=== PATIENT | male | born 1960 | race Caucasian/White ===

== ENCOUNTER 2017-02-19 11:44 | Observation (INO) | payer OTHER ==
[2017-02-19 11:45] VITALS: BMI 25.4
[2017-02-19] MEDS ORDERED: Sodium Chloride 0.9% 1,000 ML IV ONE (12:35)
[2017-02-19] MEDS ORDERED: Pantoprazole 80 MG in Sodium Chloride 0.9% 100 ML IVP SCH (12:45)
[2017-02-19 13:19] LABS: BASO # 0.1 K/uL (0.0-0.2); BASO % 1.1 % (0.0-2.0); EOS # 0.2 K/uL (0.0-0.7); EOS % 2.4 % (0.0-4.0); HEMOGLOBIN 11.6 g/dL (12.0-18.0); LYMPH # 1.9 K/uL (1.0-4.3); LYMPH % 23.9 % (20.0-40.0); MEAN CELL VOLUME 92.8 fL (80.0-94.0); MEAN CORPUSCULAR HEMOGLOBIN 29.7 pg (27.0-31.0); MEAN PLATELET VOLUME 7.7 fL (7.2-11.7); MONO # 0.7 K/uL (0.0-0.8); MONO % 8.3 % (0.0-10.0); NEUT # 5.1 K/uL (1.8-7.0); NEUT % 64.3 % (50.0-75.0); RBC 3.9 Mil/uL (4.40-5.90); RED CELL DISTRIBUTION WIDTH 13.8 % (11.5-14.5)
--- NOTE | 2017-02-19 13:19 | CP.PCM.CON ---
History of Present Illness - History of Present Illness History of Present Illness: Asked to see pt for black stool. H/O COPD, CAD, 2 yrs ago SOB- car[place] pulm embolism and AAA Now reports on friday- black diarrhea. Feels weak. CAme to ER Today. Had small amount of dark solid stool yesterday. is present. SH: Smoking., social etoh. Drank beer with friends on friday. On plavix, Denies NSAID, Denies PUD. Review of Systems - Constitutional Constitutional: Fatigue, Weakness. absent: Headache, Weight Gain, Weight Loss - EENT Eyes: absent: Photophobia Nose/Mouth/Throat: absent: Dental Pain - Cardiovascular Cardiovascular: Lightheadedness. absent: Chest Pain, Dyspnea - Respiratory Respiratory: absent: Cough, Hemoptysis, Wheezing - Gastrointestinal Gastrointestinal: Abdominal Pain, Melena. absent: Coffee Ground Emesis, Constipation, Cramping, Hematemesis, Hematochezia, Vomiting - Genitourinary Genitourinary: absent: Hematuria, Urinary Frequency - Musculoskeletal Musculoskeletal: absent: Joint Swelling - Integumentary Integumentary: absent: Jaundice - Neurological Neurological: Weakness Past Patient History - Infectious Disease Hx of Infectious Diseases: None - Past Medical History & Family History Past Medical History?: Yes - Past Social History Smoking Status: Light Smoker < 10 Cigarettes Daily - CARDIAC Hx Cardiac Disorders: Yes Hx Congestive Heart Failure: Yes Hx Heart Attack: Yes Hx Hypertension: Yes Other/Comment: possible new anuerism aortic - PULMONARY Hx Respiratory Disorders: No - NEUROLOGICAL Hx Neurological Disorder: No - HEENT Hx HEENT Problems: No - RENAL Hx Chronic Kidney Disease: No Hx Dialysis: No - ENDOCRINE/METABOLIC Hx Endocrine Disorders: No - MUSCULOSKELETAL/RHEUMATOLOGICAL Hx Musculoskeletal Disorders: No Hx Falls: No - GASTROINTESTINAL Hx Gastrointestinal Disorders: No Hx Gastroesophageal Reflux: No Other/Comment: loss of appetite and weight loss - GENITOURINARY/GYNECOLOGICAL Hx Genitourinary Disorders: Yes - PSYCHIATRIC Hx Psychophysiologic Disorder: No Hx Substance Use: No - SURGICAL HISTORY Hx Coronary Stent: Yes - ANESTHESIA Hx Anesthesia: Yes Hx Anesthesia Reactions: No Meds Allergies/Adverse Reactions: Allergies Allergy/AdvReac Type Severity Reaction Status Date / Time No Known Allergies Allergy Verified 02/19/17 11:53 - Medications Medications: Current Medications Sodium Chloride (Sodium Chloride 0.9%) 1,000 mls @ 1,000 mls/hr IV .Q1H ONE Stop: 02/19/17 13:34 Pantoprazole Sodium 80 mg/ (Sodium Chloride) 100 mls @ 10 mls/hr IV .Q10H [facility] PRN Reason: 8 MG/HR Physical Exam - Constitutional Appears: Non-toxic Additional comments: Weak. - Respiratory Exam Respiratory Exam: Clear to Auscultation Bilateral - Cardiovascular Exam Cardiovascular Exam: RRR - GI/Abdominal Exam GI & Abdominal Exam: Normal Bowel Sounds, Soft. absent: Mass - Extremities Exam Extremities exam: Negative for: calf tenderness - Neurological Exam Neurological exam: Alert, Oriented x3 Results - Vital Signs Recent Vital Signs: Last Vital Signs Temp 98.9 F 02/19/17 11:48 Pulse 75 02/19/17 11:48 Resp 16 02/19/17 11:48 BP 114/66 02/19/17 11:48 Pulse Ox 98 02/19/17 11:48 Assessment & Plan (1) COPD (chronic obstructive pulmonary disease) Status: Acute (2) Epigastric pain Assessment and Plan: COnsider gastritis, PUD. Status: Acute (3) Melena Assessment and Plan: Likely ulcer. Ulcer promoted by alcohol and smoking. Bleeding promoted by plavix. P- PPI drip, check Hb's. NPO, hold plavix endoscopy- when stable. Status: Acute (4) Weakness Status: Acute (5) Aortic aneurysm Status: Acute (6) Coronary atherosclerosis of [place] coronary artery Status: Acute (7) Essential hypertension Status: Acute
[2017-02-19 13:21] LABS: SQUAMOUS EPITHIAL 1 /hpf (0-5); URINE BACTERIA RARE (<OCC); URINE BILIRUBIN NEGATIVE (NEGATIVE); URINE BLOOD 1+ (NEGATIVE); URINE CLARITY Clear (Clear); URINE COLOR Yellow (YELLOW); URINE GLUCOSE (UA) NORMAL (Normal); URINE LEUKOCYTE ESTERASE TRACE Leu/uL (Negative); URINE NITRATE NEGATIVE (NEGATIVE); URINE PROTEIN NEGATIVE (NEGATIVE); URINE UROBILINOGEN NORMAL mg/dL (0.2-1.0)
[2017-02-19 13:24] LABS: INR 1.1; PROTHROMBIN TIME 12.2 SECONDS (9.7-12.2)
[2017-02-19 13:28] LABS: ALBUMIN 3.7 g/dL (3.5-5.0)
[2017-02-19 13:31] LABS: ALB/GLOB RATIO 1.3 (1.0-2.1); ALT/SGPT 16 U/L (21-72); AST/SGOT 19 U/L (17-59); BLOOD UREA NITROGEN 41 mg/dL (9-20); GFR AFRICAN-AMERICAN > 60; GFR NON-AFRICAN AMERICAN > 60
[2017-02-19 13:32] LABS: CALCIUM 8.4 mg/dl (8.6-10.4)
--- NOTE | 2017-02-19 13:41 | C.PDOC ---
History Of Present Illness Patient is a 56 y/o male, with past medical history of aortic aneurysm, is sent to the emergency department by PMD, Dr. Morfin, for admission for observation. Patient complains of black stools for the last 3 days. Otherwise, denies any fever, abdominal pain, nausea, vomiting, or any other associated symptoms at this time. Time Seen by Provider: 02/19/17 12:19 Chief Complaint (Nursing): Medical Clearance History Per: Patient History/Exam Limitations: no limitations Onset/Duration Of Symptoms: Days (3) Current Symptoms Are (Timing): Still Present Severity: None Pain Scale Rating Of: 0 Associated Symptoms: Other (black stool). denies: Nausea, Vomiting, Hematemesis Modifying Factors: None Recent travel outside of the [place]: No Additional History Per: Patient Past Medical History Reviewed: Historical Data, Nursing Documentation, Vital Signs Vital Signs: Last Vital Signs Temp 98.3 F 02/19/17 15:41 Pulse 65 02/19/17 15:41 Resp 20 02/19/17 15:41 BP 101/54 L 02/19/17 15:41 Pulse Ox 100 02/19/17 18:42 - Medical History PMH: CHF, HTN Denies: Chronic Kidney Disease Surgical History: Coronary Stent Family History: States: Unknown Family Hx - Social History Hx Alcohol Use: Yes Hx Substance Use: No - Immunization History Hx Tetanus Toxoid Vaccination: No Hx Influenza Vaccination: Yes Hx Pneumococcal Vaccination: No Review Of Systems Except As Marked, All Systems Reviewed And Found Negative. Constitutional: Negative for: Fever, Chills Gastrointestinal: Positive for: Other (black stool). Negative for: Nausea, Vomiting, Abdominal Pain, Hematemesis, Rectal Pain Genitourinary: Negative for: Dysuria, Frequency, Hematuria Musculoskeletal: Negative for: Back Pain Physical Exam - Physical Exam Appears: Non-toxic, No Acute Distress Skin: Normal Color, Warm, Dry Head: Atraumatic, Normacephalic Eye(s): bilateral: Normal Inspection Neck: Normal ROM, Supple Chest: Symmetrical Cardiovascular: Rhythm Regular, No Murmur Respiratory: Normal Breath Sounds, No Rales, No Rhonchi, No Wheezing Gastrointestinal/Abdominal: Soft, No Tenderness Rectal: Other (black stool in vault) Extremity: Bilateral: Atraumatic Neurological/Psych: Oriented x3, Normal Speech, Normal Cognition ED Course And Treatment - Laboratory Results Result Diagrams: 02/19/17 13:12 02/19/17 13:12 Lab Interpretation: No Acute Changes O2 Sat by Pulse Oximetry: 100 Pulse Ox Interpretation: Normal Progress Note: Urinalysis, blood work, CXR, EKG ordered and reviewed. Patient was given IV fluids, and Pantoprazole. Reassessment Condition: Improved - Physician Consult Information Physician Contacted: Natalie Morfin Outcome Of Conversation: admit Disposition Discussed With : Natalie Morfin Doctor Will See Patient In The: Hospital - Disposition Disposition: HOSPITALIZED Disposition Time: 17:00 Condition: STABLE - POA Present On Arrival: None - Clinical Impression Clinical Impression: GI bleeding - PA / PATHOLOGY LABORATORY DIRECTOR / Resident Statement MD/DO has reviewed & agrees with the documentation as recorded. - Scribe Statement The provider has reviewed the documentation as recorded by the Scribe Pavan Blank All medical record entries made by the Scribe were at my direction and personally dictated by me. I have reviewed the chart and agree that the record accurately reflects my personal performance of the history, physical exam, medical decision making, and the department course for this patient. I have also personally directed, reviewed, and agree with the discharge instructions and disposition.
--- NOTE | 2017-02-19 13:50 | RAD ---
HISTORY: COMPARISON: CT chest from 04/27/2015. TECHNIQUE: Chest PA and lateral FINDINGS: LINES AND TUBES: None. LUNG AND PLEURA: Lungs are clear. There are no pleural effusions or pneumothorax. HEART AND MEDIASTINUM: The heart is not enlarged. There is stable prominence of the aortic arch. The hilar and mediastinal contours are within normal limits. SKELETAL STRUCTURES: The bony structures are within normal limits for the patient's age. VISUALIZED UPPER ABDOMEN: Normal. OTHER FINDINGS: None. IMPRESSION: No acute pulmonary findings.
[2017-02-19] MEDS: Pantoprazole 80 MG in Sodium Chloride 0.9% 100 ML IV SCH ×2 (14:45→23:04)
[2017-02-20 06:37] LABS: HEMOGLOBIN 11.3 g/dL (12.0-18.0); MEAN CELL VOLUME 92.7 fL (80.0-94.0); MEAN CORPUSCULAR HEMOGLOBIN 30.5 pg (27.0-31.0); MEAN CORPUSCULAR HGB CONC 32.9 g/dL (33.0-37.0); MEAN PLATELET VOLUME 7.6 fL (7.2-11.7); RBC 3.71 Mil/uL (4.40-5.90)
--- NOTE | 2017-02-20 07:10 | CP.PCM.HP ---
History of Present Illness - History of Present Illness History of Present Illness: Chief complaint: Black stools History present illness: 56-year-old male with history of smoking, CAD, status post a stent 2, COPD, thoracic aortic aneurysm which is being monitored closely and also history of pulmonary embolism was on anticoagulation came to the emergency room with the blocked tarry stools. Patient started having the black stools for 3-4 days now, mostly painless, no epigastric pain. Initially significant amount of black stools noted, currently there is some clearing noted. Last night he had another episode of black stools. He denies any chest pain at this time, no nausea vomiting noted. In the past the patient did not have any episodes like this. Patient used to take a anticoagulation Lovenox injection for pulmonary embolism , currently not on any anticoagulation. In May 2016 patient was evaluated by cardiothoracic surgery, for ongoing descending thoracic aortic aneurysm which is a 5.1 cm in size now and being watched, and he will need another CTA in few months. Past medical history: CAD, hypertension, smoking, COPD, thoracic aortic aneurysm, status post a stent Allergy: No known drug allergy Personal history: Still actively smoking. Occasional alcohol use. Review of system noted from the chart Vital signs reviewed No neck vein distention noted Chest good air entry bilaterally, no wheezing or rales noted CVS regular heart sound, no murmur noted Abdomen soft, nontender. 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 Currently on Protonix. We'll continue to monitor the GA status, and the bleeding status. Monitor the hemoglobin. Endoscopy possibly. If he is stable clinically, will discuss with the cardiology possibly and GA about discharge plan after the endoscopy. Present on Admission - Present on Admission Any Indicators Present on Admission: No History of DVT/PE: No History of Uncontrolled Diabetes: No Urinary Catheter: No Decubitus Ulcer Present: No Past Patient History - Infectious Disease Hx of Infectious Diseases: None - Past Medical History & Family History Past Medical History?: Yes - Past Social History Smoking Status: Light Smoker < 10 Cigarettes Daily - CARDIAC Hx Congestive Heart Failure: Yes Hx Hypertension: Yes - PULMONARY Hx Respiratory Disorders: No - NEUROLOGICAL Hx Neurological Disorder: No - HEENT Hx HEENT Problems: No - RENAL Hx Chronic Kidney Disease: No - ENDOCRINE/METABOLIC Hx Endocrine Disorders: No - MUSCULOSKELETAL/RHEUMATOLOGICAL Hx Musculoskeletal Disorders: No Hx Falls: No - GASTROINTESTINAL Hx Gastrointestinal Disorders: No Hx Gastroesophageal Reflux: No Hx Vomiting: Yes - GENITOURINARY/GYNECOLOGICAL Hx Genitourinary Disorders: Yes - PSYCHIATRIC Hx Substance Use: No - SURGICAL HISTORY Hx Coronary Stent: Yes - ANESTHESIA Hx Anesthesia: Yes Hx Anesthesia Reactions: No Meds Allergies/Adverse Reactions: Allergies Allergy/AdvReac Type Severity Reaction Status Date / Time No Known Allergies Allergy Verified 02/19/17 11:53 Results - Vital Signs Recent Vital Signs: Last Vital Signs Temp 98.5 F 02/20/17 00:19 Pulse 73 02/20/17 00:19 Resp 20 02/20/17 00:19 BP 112/65 02/20/17 00:19 Pulse Ox 96 02/20/17 00:19 - Labs Result Diagrams: 02/20/17 06:26 02/19/17 13:12 Labs: Laboratory Results - last 24 hr 02/19/17 02/19/17 02/19/17 13:00 13:12 13:12 WBC 8.0 RBC 3.90 L Hgb 11.6 L D Hct 36.2 MCV 92.8 D MCH 29.7 MCHC 32.0 L RDW 13.8 Plt Count 214 MPV 7.7 Neut % (Auto) 64.3 Lymph % (Auto) 23.9 [place] % (Auto) 8.3 Eos % (Auto) 2.4 Baso % (Auto) 1.1 Neut # 5.1 Lymph # 1.9 [place] # 0.7 Eos # 0.2 Baso # 0.1 PT INR Sodium 138 Potassium 3.9 Chloride 102 Carbon Dioxide 23 Anion Gap 17 BUN 41 H Creatinine 1.2 Est GFR ( Amer) > 60 Est GFR (Non-Af Amer) > 60 Random Glucose 118 H Calcium 8.4 L Total Bilirubin 0.9 AST 19 ALT 16 L D Alkaline Phosphatase 37 L D Total Protein 6.5 Albumin 3.7 Globulin 2.8 Albumin/Globulin Ratio 1.3 Urine Color Yellow Urine Clarity Clear Urine pH 5.0 Ur Specific [place] 1.020 Urine Protein Negative Urine Glucose (UA) Normal Urine Ketones Negative Urine Blood 1+ H Urine Nitrate Negative Urine Bilirubin Negative Urine Urobilinogen Normal Ur Leukocyte Esterase Trace Urine WBC (Auto) 4 Urine RBC (Auto) 10 H Ur Squamous Epith Cells 1 Urine Bacteria Rare Blood Type Antibody Screen 02/19/17 02/19/17 02/19/17 13:12 13:12 20:01 WBC RBC Hgb 10.8 L Hct MCV MCH MCHC RDW Plt Count MPV Neut % (Auto) Lymph % (Auto) [place] % (Auto) Eos % (Auto) Baso % (Auto) Neut # Lymph # [place] # Eos # Baso # PT 12.2 INR 1.1 Sodium Potassium Chloride Carbon Dioxide Anion Gap BUN Creatinine Est GFR ( Amer) Est GFR (Non-Af Amer) Random Glucose Calcium Total Bilirubin AST ALT Alkaline Phosphatase Total Protein Albumin Globulin Albumin/Globulin Ratio Urine Color Urine Clarity Urine pH Ur Specific [place] Urine Protein Urine Glucose (UA) Urine Ketones Urine Blood Urine Nitrate Urine Bilirubin Urine Urobilinogen Ur Leukocyte Esterase Urine WBC (Auto) Urine RBC (Auto) Ur Squamous Epith Cells Urine Bacteria Blood Type A POSITIVE Antibody Screen Negative 02/20/17 06:26 WBC 7.0 RBC 3.71 L Hgb 11.3 L Hct 34.4 L MCV 92.7 MCH 30.5 MCHC 32.9 L RDW 14.0 Plt Count 209 MPV 7.6 Neut % (Auto) Lymph % (Auto) [place] % (Auto) Eos % (Auto) Baso % (Auto) Neut # Lymph # [place] # Eos # Baso # PT INR Sodium Potassium Chloride Carbon Dioxide Anion Gap BUN Creatinine Est GFR ( Amer) Est GFR (Non-Af Amer) Random Glucose Calcium Total Bilirubin AST ALT Alkaline Phosphatase Total Protein Albumin Globulin Albumin/Globulin Ratio Urine Color Urine Clarity Urine pH Ur Specific [place] Urine Protein Urine Glucose (UA) Urine Ketones Urine Blood Urine Nitrate Urine Bilirubin Urine Urobilinogen Ur Leukocyte Esterase Urine WBC (Auto) Urine RBC (Auto) Ur Squamous Epith Cells Urine Bacteria Blood Type Antibody Screen
[2017-02-20 07:35] LABS: BLOOD UREA NITROGEN 25 mg/dL (9-20); GFR AFRICAN-AMERICAN > 60; GFR NON-AFRICAN AMERICAN > 60
[2017-02-20 07:36] LABS: CALCIUM 8.2 mg/dl (8.6-10.4)
[2017-02-20] MEDS: Pantoprazole 80 MG in Sodium Chloride 0.9% 100 ML IV SCH ×2 (09:32→19:40)
[2017-02-20] MEDS ORDERED: Etomidate 20 mg/10ml Inj IV ONE (10:31)
[2017-02-20] MEDS: Sucralfate 1 gm/10 ml Oral Susp UD PO SCH ×2 (14:04→17:23)
[2017-02-20 15:48] VITALS: RESP 20
[2017-02-21] MEDS: Pantoprazole 80 MG in Sodium Chloride 0.9% 100 ML IV SCH (06:45)
[2017-02-21 07:49] VITALS: BP 130/77; PULSE 70; TEMP 98.4; O2SAT 98
[2017-02-21 08:38] LABS: HEMOGLOBIN 11.4 g/dL (12.0-18.0); MEAN CELL VOLUME 93.2 fL (80.0-94.0); MEAN CORPUSCULAR HEMOGLOBIN 30.2 pg (27.0-31.0); MEAN CORPUSCULAR HGB CONC 32.4 g/dL (33.0-37.0); MEAN PLATELET VOLUME 8.1 fL (7.2-11.7); RBC 3.78 Mil/uL (4.40-5.90); RED CELL DISTRIBUTION WIDTH 13.8 % (11.5-14.5); WHITE BLOOD COUNT 6.9 K/uL (4.8-10.8)
[2017-02-21] MEDS: Sucralfate 1 gm/10 ml Oral Susp UD PO SCH ×2 (09:41→13:03)
--- NOTE | 2017-02-21 13:05 | CP.PCM.PN ---
Subjective - Date & Time of Evaluation Date of Evaluation: 02/21/17 Time of Evaluation: 13:05 Objective - Vital Signs/Intake and Output Vital Signs (last 24 hours): Temp Pulse Resp BP Pulse Ox 98.4 F 70 20 130/77 98 02/21/17 07:47 02/21/17 07:47 02/21/17 07:47 02/21/17 07:47 02/21/17 07:47 Intake and Output: 02/21/17 02/21/17 06:59 18:59 Intake Total 760 Balance 760 - Medications Medications: Current Medications Pantoprazole Sodium 80 mg/ (Sodium Chloride) 100 mls @ 10 mls/hr IV .Q10H [facility] PRN Reason: 8 MG/HR Last Admin: 02/21/17 06:45 Dose: 10 mls/hr Pneumococcal Polyvalent Vaccine (Pneumovax 23 Vaccine) 0.5 ml IM .ONCE ONE Stop: 02/22/17 10:01 Sucralfate (Carafate Oral Susp) 1 gm PO TID [facility] Last Admin: 02/21/17 13:03 Dose: 1 gm - Labs Labs: 02/21/17 08:26 02/20/17 06:26 PT 12.2 SECONDS (9.7-12.2) 02/19/17 13:12 INR 1.1 02/19/17 13:12
--- NOTE | 2017-02-21 13:14 | CP.PCM.PN ---
Subjective - Date & Time of Evaluation Date of Evaluation: 02/21/17 Time of Evaluation: 13:11 - Subjective Subjective: F/U GI bleed. Pt seen with RN Pt reports feeling much better. Had 1 black BM today. Denies abdom pain, RB, fever, chills, Cp, SOB., FU, cough Objective - Vital Signs/Intake and Output Vital Signs (last 24 hours): Temp Pulse Resp BP Pulse Ox 98.4 F 70 20 130/77 98 02/21/17 07:47 02/21/17 07:47 02/21/17 07:47 02/21/17 07:47 02/21/17 07:47 Intake and Output: 02/21/17 02/21/17 06:59 18:59 Intake Total 760 Balance 760 - Medications Medications: Current Medications Pantoprazole Sodium 80 mg/ (Sodium Chloride) 100 mls @ 10 mls/hr IV .Q10H [facility] PRN Reason: 8 MG/HR Last Admin: 02/21/17 06:45 Dose: 10 mls/hr Pneumococcal Polyvalent Vaccine (Pneumovax 23 Vaccine) 0.5 ml IM .ONCE ONE Stop: 02/22/17 10:01 Sucralfate (Carafate Oral Susp) 1 gm PO TID [facility] Last Admin: 02/21/17 13:03 Dose: 1 gm - Labs Labs: 02/21/17 08:26 02/20/17 06:26 PT 12.2 SECONDS (9.7-12.2) 02/19/17 13:12 INR 1.1 02/19/17 13:12 - Constitutional Appears: Well - Neck Exam Neck Exam: absent: Tenderness - Respiratory Exam Respiratory Exam: Clear to Ausculation Bilateral - Cardiovascular Exam Cardiovascular Exam: RRR - GI/Abdominal Exam GI & Abdominal Exam: Soft, Normal Bowel Sounds. absent: Guarding, Tenderness, Mass - Extremities Exam Extremities Exam: absent: Calf Tenderness - Neurological Exam Neurological Exam: Alert, Oriented x3 Assessment and Plan (1) COPD (chronic obstructive pulmonary disease) Status: Acute (2) Epigastric pain Assessment & Plan: gastric ulcers Status: Acute (3) Melena Assessment & Plan: Gastric ulcers. had 1 black BM today- solid- likely is OLD blood. I Doubt active bleeding. REC_ PPI BID, check Hb. CHeck gastric biopsy. Repeat EGD 1-2 months. Discussd with patient. Hold aspirin and plavix 1 week Status: Acute (4) Weakness Status: Acute (5) Aortic aneurysm Status: Acute (6) Coronary atherosclerosis of [place] coronary artery Status: Acute (7) Essential hypertension Status: Acute
[2017-02-21] MEDS ORDERED: Pneumococcal 23-Valent Vaccine IM ONE (13:45)
== END 2017-02-21 14:52 | disposition home or self-care (01) ==
LOC: C.ER 11:44 → C.9E 12:41 → C.3T 13:10
PROVIDERS: ADMIT Internal Medicine; ATTEND Internal Medicine
DX: K29.70 Gastritis, unspecified, without bleeding (principal); K20.9 Esophagitis, unspecified; B96.81 Helicobacter pylori [H. pylori] as the cause of diseases classified elsewhere; I50.9 Heart failure, unspecified; J44.9 Chronic obstructive pulmonary disease, unspecified; I77.1 Stricture of artery; I25.2 Old myocardial infarction; I25.10 Atherosclerotic heart disease of native coronary artery without angina pectoris; I11.0 Hypertensive heart disease with heart failure; F17.200 Nicotine dependence, unspecified, uncomplicated
CPT/HCPCS: 36415; 43239; 71020; 80048; 80053; 81001; 85018; 85025; 85027; 85610; 86850; 86900; 88305; 88342; 90471; 90732; 96365; 96366; 96375; 96376; 99284; C9113; G0378; J7040